=== PATIENT | male | born 1985 | race Caucasian/White ===

== ENCOUNTER 2017-11-03 18:35 | Emergency (ER) | payer MEDICARE ==
[~2017-11-03] VITALS: Ht 170.2 cm; Wt 63.5 kg
[~2017-11-03 18:35] MED LIST: ACETAMINOPHEN-1 EAC1 PO; AUGMENTIN 875875 MG PO; AZITHROMYCIN 2250 MG PO; CLEOCIN HCL300 MG PO; FLEXERIL PO; HALDOL 0.5 MG0.5 MG PO; HYDROCODONE-AP1 EAC6 PO; HYDROCODONE-APA1 TA1 PO; IBUPROFEN 800800 M1 PO; INVEGA SUS234 MG/1.5 IM; NORCO 5-325 TA1 EAC1 PO; NORCO 5-325 TA1 EACH PO; PENICILLIN VK500 M1 PO; RISPERDAL 3 MG T3 M1 PO; RISPERIDONE IM; ROBITUSSIN15 MG/5 ML PO; ULTRAM 50MG TAB50 MG PO; VISTARIL 25 MG25 M1; ZOFRAN ODT4 MG PO
[2017-11-03] MEDS ORDERED: QUETIAPINE FUM100 MG PO (18:52)
[2017-11-03] MEDS ORDERED: SEROQUEL 25 MG25 M1 PO (18:52)
[2017-11-03] MEDS ORDERED: AMOXICILLIN 50500 MG PO ×2 (18:54→18:59)
[2017-11-03 19:17] VITALS: BP 126/69
[2017-11-11] MEDS ORDERED: CLONAZEPAM 0.50.5 M1 PO (09:48)
== END 2017-11-03 19:18 | disposition home or self-care (01) ==
LOC: M.ERS 18:35
DX: R68.84 Jaw pain (principal); K08.89 Other specified disorders of teeth and supporting structures; H61.23 Impacted cerumen, bilateral; F20.9 Schizophrenia, unspecified; F41.9 Anxiety disorder, unspecified; F43.10 Post-traumatic stress disorder, unspecified; F17.210 Nicotine dependence, cigarettes, uncomplicated

== ENCOUNTER 2017-11-05 23:13 | Emergency (ER) | payer MEDICARE ==
[~2017-11-05] VITALS: Ht 170.2 cm; Wt 63.5 kg
[~2017-11-05 23:13] MED LIST changes: +AMOXICILLIN 50500 MG PO; +QUETIAPINE FUM100 MG PO; +SEROQUEL 25 MG25 M1 PO
[2017-11-05 23:47] LABS: ABSOLUTE EOSINOPHILS 0.2 thou/uL (0.0-0.7); ABSOLUTE LYMPHOCYTES 2.4 thou/uL (0.8-5.3); ABSOLUTE MONOCYTES 0.8 thou/uL (0.0-1.2); ABSOLUTE NEUTROPHILS 3.7 thou/uL (1.6-8.1); BASOPHILS 0.6 %; EOSINOPHILS 3.3 %; HEMATOCRIT 34.4 % (42.0-52.0); HEMOGLOBIN 11.7 gm/dL (14.0-18.0); LYMPHOCYTES 33.2 %; MCHC 34.1 g/dL (28.0-37.0); MCV 93.6 fL (80.0-100.0); MONOCYTES 11.7 %; MPV 7.2 fl. (7.2-11.1); NUCLEATED RBCS 0 /100WBC; PLATELET COUNT* 229 thou/uL (150-400); POLYS 51.2 %; RBC 3.68 mil/uL (4.50-6.00); RDW-CV 13.8 % (10.5-14.5); WBC 7.2 thou/uL (4.0-11.0)
[2017-11-05 23:56] LABS: CALCIUM 8.4 mg/dL (8.5-10.1); CREATININE 1.2 mg/dL (0.6-1.3); POTASSIUM 3.8 mmol/L (3.5-5.1)
[2017-11-06 00:01] LABS: ALBUMIN 3.4 g/dL (3.4-5.0); TOTAL BILIRUBIN 0.1 mg/dL (<0.1-1.0); TOTAL PROTEIN 6.1 g/dL (6.4-8.2)
[2017-11-06 00:03] LABS: ACETAMINOPHEN < 2 ug/mL (10-30)
[2017-11-06 00:04] LABS: ALCOHOL < 10 mg/dL (<10)
[2017-11-06 02:02] VITALS: BP 99/60
[2017-11-11] MEDS ORDERED: CLONAZEPAM 0.50.5 M1 PO (09:48)
== END 2017-11-06 01:45 | disposition home or self-care (01) ==
LOC: M.ERS 23:13
PROVIDERS: Emergency Medicine
DX: F41.9 Anxiety disorder, unspecified (principal); F20.9 Schizophrenia, unspecified; F17.210 Nicotine dependence, cigarettes, uncomplicated

== ENCOUNTER 2017-11-11 09:33 | Emergency (ER) | payer MEDICARE ==
[~2017-11-11] VITALS: Ht 170.2 cm; Wt 63.5 kg
[2017-11-11] MEDS ORDERED: CLONAZEPAM 0.50.5 M1 PO ×2 (09:48)
[2017-11-11 10:03] VITALS: BP 120/55
== END 2017-11-11 10:05 | disposition home or self-care (01) ==
LOC: M.ERS 09:33
DX: F41.9 Anxiety disorder, unspecified (principal); F20.9 Schizophrenia, unspecified; F17.210 Nicotine dependence, cigarettes, uncomplicated

== ENCOUNTER 2017-11-11 17:28 | Emergency (ER) | payer MEDICARE ==
[~2017-11-11] VITALS: Ht 170.2 cm; Wt 63.5 kg
[~2017-11-11 17:28] MED LIST changes: +CLONAZEPAM 0.50.5 M1 PO
[2017-11-11 17:55] LABS: ABSOLUTE EOSINOPHILS 0.3 thou/uL (0.0-0.7); ABSOLUTE LYMPHOCYTES 2.2 thou/uL (0.8-5.3); ABSOLUTE MONOCYTES 0.9 thou/uL (0.0-1.2); ABSOLUTE NEUTROPHILS 3.4 thou/uL (1.6-8.1); BASOPHILS 0.3 %; EOSINOPHILS 4.2 %; HEMATOCRIT 39.5 % (42.0-52.0); HEMOGLOBIN 13.3 gm/dL (14.0-18.0); LYMPHOCYTES 32.6 %; MCH 31.4 pg (26.0-34.0); MCHC 33.6 g/dL (28.0-37.0); MCV 93.5 fL (80.0-100.0); MONOCYTES 12.8 %; MPV 7.6 fl. (7.2-11.1); NUCLEATED RBCS 0 /100WBC; PLATELET COUNT* 235 thou/uL (150-400); POLYS 50.1 %; RBC 4.22 mil/uL (4.50-6.00); RDW-CV 13.6 % (10.5-14.5); WBC 6.8 thou/uL (4.0-11.0)
[2017-11-11 18:04] LABS: CALCIUM 8.9 mg/dL (8.5-10.1); POTASSIUM 4.4 mmol/L (3.5-5.1)
[2017-11-11 18:09] LABS: ALBUMIN 3.9 g/dL (3.4-5.0); TOTAL BILIRUBIN 0.2 mg/dL (<0.1-1.0); TOTAL PROTEIN 7.3 g/dL (6.4-8.2)
[2017-11-11 18:14] LABS: ACETAMINOPHEN < 2 ug/mL (10-30); ALCOHOL < 10 mg/dL (<10); SALICYLATE 4.4 mg/dL (2.8-20.0)
[2017-11-11 18:29] LABS: URINE BILIRUBIN NEGATIVE (Negative); URINE BLOOD TRACE (Negative); URINE CLARITY CLEAR; URINE COLOR YELLOW; URINE GLUCOSE-RANDOM NEGATIVE (Negative); URINE KETONES NEGATIVE (Negative); URINE LEUKOCYTES NEGATIVE (Negative); URINE NITRITE NEGATIVE (Negative); URINE PROTEIN NEGATIVE (Negative); URINE UROBILINOGEN 0.2 E.U./dl (0.2-1.0)
[2017-11-11 18:39] LABS: AMP/METHAMP Negative (Negative); BACTERIA None Seen /HPF (None Seen); BARBITURATES Negative (Negative); BENZODIAZEPINES Negative (Negative); CASTS None Seen /LPF (None Seen); COCAINE Negative (Negative); METHADONE Negative (Negative); OPIATES Negative (Negative); PCP Negative (Negative); SQUAMOUS NONE SEEN /LPF (0-3); THC POSITIVE (Negative); URINE RBC 3-10 Few /HPF (0-2); URINE WBC None Seen /HPF (0-5)
[2017-11-11 18:40] LABS: CRYSTALS None Seen /LPF (None Seen)
[2017-11-11 22:11] VITALS: BP 112/69
== END 2017-11-11 22:13 | disposition home or self-care (01) ==
LOC: M.ERS 17:28
PROVIDERS: Family Medicine
DX: F32.9 Major depressive disorder, single episode, unspecified (principal); F41.9 Anxiety disorder, unspecified; F20.9 Schizophrenia, unspecified; F43.10 Post-traumatic stress disorder, unspecified; F17.210 Nicotine dependence, cigarettes, uncomplicated

== ENCOUNTER 2017-11-16 10:39 | Emergency (ER) | payer MEDICARE ==
[~2017-11-16] VITALS: Ht 170.2 cm; Wt 65.8 kg
[2017-11-16 11:14] VITALS: BP 118/60
[2017-11-16] MEDS ORDERED: CLARITIN10 MG PO (22:44)
== END 2017-11-16 11:17 | disposition home or self-care (01) ==
LOC: M.ERS 10:39
DX: S70.362A Insect bite (nonvenomous), left thigh, initial encounter (principal); W57.XXXA Bitten or stung by nonvenomous insect and other nonvenomous arthropods, initial encounter; Y93.89 Activity, other specified; Y92.89 Other specified places as the place of occurrence of the external cause; Y99.8 Other external cause status; F41.9 Anxiety disorder, unspecified; F20.9 Schizophrenia, unspecified; F43.10 Post-traumatic stress disorder, unspecified; F17.210 Nicotine dependence, cigarettes, uncomplicated

== ENCOUNTER 2017-11-16 21:24 | Emergency (ER) | payer MEDICARE ==
[~2017-11-16] VITALS: Ht 170.2 cm; Wt 63.5 kg
[2017-11-16] MEDS ORDERED: CLARITIN10 MG PO (22:44)
[2017-11-16 23:00] VITALS: BP 103/62
== END 2017-11-16 23:01 | disposition home or self-care (01) ==
LOC: M.ERS 21:24
DX: S60.561A Insect bite (nonvenomous) of right hand, initial encounter (principal); W57.XXXA Bitten or stung by nonvenomous insect and other nonvenomous arthropods, initial encounter; Y93.89 Activity, other specified; Y92.89 Other specified places as the place of occurrence of the external cause; Y99.8 Other external cause status; F41.9 Anxiety disorder, unspecified; F20.9 Schizophrenia, unspecified; F17.210 Nicotine dependence, cigarettes, uncomplicated

== ENCOUNTER 2017-11-22 22:18 | Emergency (ER) | payer MEDICARE ==
[~2017-11-22] VITALS: Ht 170.2 cm; Wt 68.0 kg
[~2017-11-22 22:18] MED LIST changes: +CLARITIN10 MG PO
[2017-11-22 23:01] VITALS: BP 117/77
== END 2017-11-22 23:03 | disposition home or self-care (01) ==
LOC: M.ERS 22:18
DX: F41.9 Anxiety disorder, unspecified (principal); F20.9 Schizophrenia, unspecified; F17.210 Nicotine dependence, cigarettes, uncomplicated